=== PATIENT | female | born 1985 | race American Indian/Alaskan Native ===

== ENCOUNTER 2017-08-15 01:45 | Emergency (ER) | payer MEDICAID, OTHER ==
[2017-08-15 02:46] LABS: Basophils % (Auto) 0.4 % (0.0-1.8); Eosinophils % (Auto) 0.3 % (0.0-4.3); Hematocrit 39.7 % (30.3-42.9); Hemoglobin 13.2 gm/dl (10.1-14.3); Mean Corpuscular HGB Conc 33 % (30-34); Mean Corpuscular Volume 76 fl (79-97); Platelet Count 211 K/mm3 (140-440); Red Cell Distribution Width 14.8 % (13.2-15.2); White Blood Count 8.4 K/mm3 (4.5-11.0)
[2017-08-15 02:47] LABS: Mean Corpuscular Hemoglobin 25 pg (28-32)
[2017-08-15 03:25] LABS: Alanine Aminotransferase 16 units/L (7-56); Albumin 3.8 g/dL (3.9-5); Albumin/Globulin Ratio 1.4 %; Alkaline Phosphatase 54 units/L (35-129); Anion Gap 20 mmol/L; BUN/Creatinine Ratio 13; Blood Urea Nitrogen 4 mg/dL (7-17); Calcium 9.2 mg/dL (8.4-10.2); Carbon Dioxide 21 mmol/L (22-30); Glucose 103 mg/dL (65-100); Lipase 9 units/L (13-60); Potassium 3.9 mmol/L (3.6-5.0); Sodium 138 mmol/L (137-145); Total Protein 6.5 g/dL (6.3-8.2)
[2017-08-15 05:22] VITALS: BP 128/58
[2017-08-15 05:58] LABS: Bilirubin,Urine NEG (Negative); Blood,Urine NEG (Negative); Granular Casts,Urine 1 /LPF; Ketones,Urine NEG (Negative); Leukocyte Esterase,Urine TR (Negative); Mucus,Urine 1+ /HPF; Nitrite,Urine NEG (Negative); Protein,Urine <15 mg/dL mg/dL (Negative); Urobilinogen,Urine < 2.0 mg/dL (<2.0)
== END 2017-08-15 05:03 | disposition left against medical advice (07) ==
LOC: ED 01:45
DX: R10.9 Unspecified abdominal pain (principal)
CPT/HCPCS: 36415; 80053; 81001; 83690; 84703; 85025

== ENCOUNTER 2017-09-04 14:21 | Inpatient (IN) | payer MEDICAID ==
[2017-09-04] MEDS ORDERED: ZOFRAN IV ONE ×2 (15:13→18:35)
[2017-09-04] MEDS ORDERED: MORPHINE IV ONE ×4 (15:13→19:37)
--- NOTE | 2017-09-04 15:57 | Ultrasound Report ---
OB sonogram: History: Contraction lower abdominal pain/. Findings: Gestation: Single Position: Cephalic Amniotic Fluid: DAYANA = decreased cm Placenta: Posterior Placental Grade: 0 Heart Rate: 55 BPM It is too early for anatomic survey. BPD: 3.5 cm = 16 w 5 d HC: 14.3 cm = 17 w 4 d AC: 11.3 cm = 17 w one d FL: 2.1 cm = 16 w one d HC/AC Ratio: 1.3 Cephalic Index: 64.9 Estimated Weight: 168 grams LMP: Clinical age = 18 w one d EDC: 02/04/18 US Gest. Age = 16 w 6 d EDC: 02/13/18 The fetus appears to be in the low uterine segment adjacent to the cervix.
[2017-09-04 16:17] LABS: Basophils % (Auto) 0.3 % (0.0-1.8); Eosinophils % (Auto) 0.3 % (0.0-4.3); Hematocrit 41.5 % (30.3-42.9); Hemoglobin 13.7 gm/dl (10.1-14.3); Mean Corpuscular HGB Conc 33 % (30-34); Mean Corpuscular Volume 77 fl (79-97); Platelet Count 243 K/mm3 (140-440); Red Blood Count 5.41 M/mm3 (3.65-5.03); White Blood Count 11.6 K/mm3 (4.5-11.0)
[2017-09-04 16:18] LABS: Mean Corpuscular Hemoglobin 25 pg (28-32)
[2017-09-04] MEDS ORDERED: NACL 0.9% 1000 ML 1,000 ML IV ONE ×3 (16:21→17:51)
[2017-09-04 16:37] LABS: Anion Gap 22 mmol/L; BUN/Creatinine Ratio 13; Blood Urea Nitrogen 4 mg/dL (7-17); Calcium 9.4 mg/dL (8.4-10.2); Carbon Dioxide 17 mmol/L (22-30); Chloride 97.9 mmol/L (98-107); Glucose 85 mg/dL (65-100); Potassium 3.8 mmol/L (3.6-5.0); Sodium 133 mmol/L (137-145)
--- NOTE | 2017-09-04 17:28 | Emergency Department Report ---
ED Female HPI - General Chief complaint: OB/Uterine Contractions Stated complaint: LOWER ABD PAIN, 18 WKS Source: patient, EMS Mode of arrival: Stretcher Limitations: No Limitations - History of Present Illness Initial comments: The patient is 18 weeks by dates. 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 As far as she knew her was going well until she has acute onset of lower abdominal cramping and vaginal bleeding. She passed some clots. She presented to the emergency department further care and evaluation. Complaint: vaginal bleeding -: Sudden Location: suprapubic Severity: moderate, severe Quality: cramping Consistency: intermittent Improves with: none Worsens with: none Are you Now?: Yes (18 weeks by dates) Associated Symptoms: denies other symptoms - Related Data Home Medications Medication Instructions Recorded Confirmed Last Taken No Known Home Medications [No 09/30/13 09/30/13 Unknown Reported Home Medications] Allergies Allergy/AdvReac Type Severity Reaction Status Date / Time oxycodone [From OxyContin] Allergy Unknown Verified 09/04/17 15:04 ED Review of Systems ROS: Stated complaint: LOWER ABD PAIN, 18 WKS Other details as noted in HPI Constitutional: denies: chills, fever Eyes: denies: eye pain, eye discharge, vision change ENT: denies: ear pain, throat pain Respiratory: denies: cough, shortness of breath, wheezing Cardiovascular: denies: chest pain, palpitations Endocrine: no symptoms reported Gastrointestinal: denies: abdominal pain, nausea, diarrhea Genitourinary: as per HPI, other. denies: urgency, dysuria, discharge Musculoskeletal: denies: back pain, joint swelling, arthralgia Skin: denies: rash, lesions Neurological: denies: headache, weakness, paresthesias Psychiatric: denies: anxiety, depression Hematological/Lymphatic: denies: easy bleeding, easy bruising ED Past Medical Hx - Past Medical History Previous Medical History?: No Hx Hypertension: No Hx Seizures: No Hx Asthma: No - Surgical History Past Surgical History?: Yes Additional Surgical History: Mirena removal - Social History Smoking Status: Never Smoker Substance Use Type: None - Medications Home Medications: Home Medications Medication Instructions Recorded Confirmed Last Taken Type No Known Home Medications [No 09/30/13 09/30/13 Unknown History Reported Home Medications] ED Physical Exam - General Limitations: No Limitations General appearance: alert, in no apparent distress, anxious - Head Head exam: Present: atraumatic, normocephalic - Eye Eye exam: Present: normal appearance. Absent: scleral icterus - ENT ENT exam: Present: mucous membranes moist - Neck Neck exam: Present: normal inspection - Respiratory Respiratory exam: Present: normal lung sounds bilaterally. Absent: respiratory distress - Cardiovascular Cardiovascular Exam: Present: regular rate, normal rhythm. Absent: systolic murmur, diastolic murmur, rubs, gallop - GI/Abdominal GI/Abdominal exam: Present: soft, normal bowel sounds. Absent: distended, tenderness, guarding, rebound, rigid - External exam: Present: other (clot at the introitus no active bleeding) - Extremities Exam Extremities exam: Present: normal inspection - Back Exam Back exam: Present: normal inspection - Neurological Exam Neurological exam: Present: alert, oriented X3, CN II-XII intact. Absent: motor sensory deficit - Psychiatric Psychiatric exam: Present: normal affect, normal mood - Skin Skin exam: Present: warm, dry, intact, normal color. Absent: rash ED Course Vital Signs 09/04/17 09/04/17 09/04/17 15:04 15:44 16:08 Temperature 98.6 F Pulse Rate 97 H 91 H Respiratory 20 18 18 Rate Blood Pressure 147/89 Blood Pressure 131/90 [Left] O2 Sat by Pulse 98 98 98 Oximetry - Reevaluation(s) Reevaluation #1: Patient was given analgesia. 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 Finally, the nurse practitioner called me back. By then the patient had just passed a fetus per the nurse. The nurse practitioner for Dr. Broderick stated that we could bridge the patient up to mother baby for further care and evaluation. This will be done. I will reexamine the patient prior to sending her and begin a Pitocin drip. 09/04/17 17:30 Reevaluation #2: The patient's cord was cut and clamped. The placenta has not yet passed. Nursing is processing the fetus appropriately. Patient will be admitted. She is not actively bleeding. 09/04/17 17:39 ED Medical Decision Making - Lab Data Result diagrams: 09/04/17 16:13 09/04/17 15:13 Laboratory Results - last 24 hr 09/04/17 09/04/17 09/04/17 15:13 16:06 16:13 WBC 11.6 H RBC 5.41 H Hgb 13.7 Hct 41.5 MCV 77 L MCH 25 L MCHC 33 RDW 14.0 Plt Count 243 Lymph % (Auto) 17.0 [place] % (Auto) 6.1 Eos % (Auto) 0.3 Baso % (Auto) 0.3 Lymph # 2.0 [place] # 0.7 Eos # 0.0 Baso # 0.0 Seg Neutrophils % 76.3 H Seg Neutrophils # 8.8 H Sodium 133 L Potassium 3.8 Chloride 97.9 L Carbon Dioxide 17 L Anion Gap 22 BUN 4 L Creatinine 0.3 L Estimated GFR > 60 BUN/Creatinine Ratio 13 Glucose 85 Calcium 9.4 HCG, Quant Blood Type B POSITIVE Antibody Screen Negative 09/04/17 16:13 WBC RBC Hgb Hct MCV MCH MCHC RDW Plt Count Lymph % (Auto) [place] % (Auto) Eos % (Auto) Baso % (Auto) Lymph # [place] # Eos # Baso # Seg Neutrophils % Seg Neutrophils # Sodium Potassium Chloride Carbon Dioxide Anion Gap BUN Creatinine Estimated GFR BUN/Creatinine Ratio Glucose Calcium HCG, Quant 87152 H Blood Type Antibody Screen Critical care attestation.: If time is entered above; I have spent that time in minutes in the direct care of this critically ill patient, excluding procedure time. ED Disposition Clinical Impression: Incomplete Disposition: -09 OP ADMIT IP TO THIS HOSP Is pt being admited?: Yes Does the pt Need Aspirin: No Condition: Stable Referrals: PRIMARY CARE, [Primary Care Provider] - 3-5 Days Time of Disposition: 17:39
[2017-09-04] MEDS ORDERED: PITOCin/NS 20 UNIT/1000ML DRIP 20 UNITS/1,000 ML BAG IV SCH (18:00)
[2017-09-04] MEDS ORDERED: ZOFRAN ONE (18:23)
[2017-09-04] MEDS ORDERED: MORPHINE ONE (19:28)
[2017-09-04 20:07] LABS: Basophils % (Auto) 0.2 % (0.0-1.8); Eosinophils % (Auto) 0.1 % (0.0-4.3); Hematocrit 32.5 % (30.3-42.9); Hemoglobin 10.5 gm/dl (10.1-14.3); Mean Corpuscular HGB Conc 32 % (30-34); Mean Corpuscular Volume 77 fl (79-97); Platelet Count 214 K/mm3 (140-440); Red Cell Distribution Width 14.1 % (13.2-15.2); White Blood Count 12.8 K/mm3 (4.5-11.0)
[2017-09-04 20:08] LABS: Mean Corpuscular Hemoglobin 25 pg (28-32)
[2017-09-04 20:17] LABS: INR 1.09 (0.87-1.13)
[2017-09-04 20:18] LABS: Partial Thromboplastin Time 22.9 Sec. (24.2-36.6)
[2017-09-04] MEDS ORDERED: PHENERGAN PO PRN (20:18)
[2017-09-04] MEDS ORDERED: TYLENOL PO PRN (20:18)
[2017-09-04] MEDS ORDERED: DULCOLAX PR PRN (20:18)
[2017-09-04] MEDS ORDERED: ZOFRAN IV PRN (20:18)
[2017-09-04] MEDS ORDERED: MILK OF MAGNESIA PO PRN (20:18)
[2017-09-04] MEDS ORDERED: LANSINOH TP PRN (20:18)
[2017-09-04] MEDS ORDERED: PHENERGAN PR PRN (20:18)
[2017-09-04] MEDS ORDERED: TUCKS PAD TP PRN (20:18)
[2017-09-04] MEDS ORDERED: BENADRYL PO PRN (20:18)
--- NOTE | 2017-09-04 20:30 | History and Physical Report ---
History of Present Illness Date of examination: 09/04/17 Date of admission: 09/04/17 17:25 Chief complaint: cramping since yesterday, water broke at home and fetus delivered in the ER History of present illness: 32 yo at !8 wk followed at [facility] who went there yesterday c/o contractions and pain and was tx for UTI "again". She came to ER today with severe pain and passed an 18wk fetus several hours before I saw her. She said the pain just got worse and worse and then her water broke at home and she came in via EMS. 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 (D&C x 2 for EAB and remove Mirena) Family/Genetic History: none Social history: no significant social history - Obstetrical History : 4 Para: 1 Hx # Term Pregnancies: 1 Spontaneous Abortions: 2 Induced : 1 Number of Living Children: 1 Medications and Allergies Allergies Allergy/AdvReac Type Severity Reaction Status Date / Time oxycodone [From OxyContin] Allergy Unknown Verified 09/04/17 15:04 Home Medications Medication Instructions Recorded Confirmed Last Taken Type Amoxicillin/Potassium Clav 1 each PO BID 09/04/17 09/04/17 09/04/17 History [Augmentin 500-125 Tablet] Active Meds: Active Medications Acetaminophen (Tylenol) 650 mg PO Q4H PRN PRN Reason: Pain MILD(1-3)/Fever >100.5/CANDELARIO Bisacodyl (Dulcolax) 10 mg ND BID PRN PRN Reason: Constipation Diphenhydramine HCl (Benadryl) 25 mg PO Q6H PRN PRN Reason: Itching Diphtheria/Tetanus/Acell Pertussis (Boostrix) 0.5 ml IM .ONCE ONE Stop: 09/05/17 20:19 Oxytocin/Sodium Chloride (Pitocin/Ns 20 Unit/1000ml Drip) 20 units in 1,000 mls @ 125 mls/hr IV DIRECT NNEKA Last Admin: 09/04/17 18:00 Dose: 125 mls/hr Ibuprofen (Motrin) 600 mg PO Q6H NNEKA Magnesium Hydroxide (Milk Of Magnesia) 30 ml PO HS PRN PRN Reason: Constipation Multi-Ingredient Ointment (Lansinoh) 1 applic TP PRN PRN PRN Reason: Sore Nipples Ondansetron HCl (Zofran) 4 mg IV Q8H PRN PRN Reason: Nausea And Vomiting Promethazine HCl (Phenergan) 25 mg ND Q6H PRN PRN Reason: Nausea And Vomiting Promethazine HCl (Phenergan) 25 mg PO Q6H PRN PRN Reason: Nausea And Vomiting Sodium Chloride (Sodium Chloride Flush Syringe 10 Ml) 10 ml IV PRN NR Witch Casandra/Glycerin (Tucks Pad) 1 each TP PRN PRN PRN Reason: Hemorrhoid/cleansing/soothing Review of Systems All systems: negative - Vital Signs Vital signs: Vital Signs Temp Pulse Resp BP Pulse Ox 98.6 F 97 H 20 147/89 98 09/04/17 15:04 09/04/17 15:04 09/04/17 15:04 09/04/17 15:04 09/04/17 15:04 Temp Pulse Resp BP Pulse Ox 98.6 F 104 H 22 122/76 100 09/04/17 15:04 09/04/17 18:00 09/04/17 18:00 09/04/17 18:00 09/04/17 18:00 - Physical Exam Cardiovascular: Regular rate Lungs: Positive: Clear to auscultation Abdomen: Positive: normal appearance, soft Uterus: Positive: enlarged (placenta removed intact and clots expressed by me, teased out with ring forceps, intact fetus in the room) Results Result Diagrams: 09/04/17 19:51 09/04/17 15:13 Abnormal lab results 09/04/17 09/04/17 Range/Units 19:51 19:51 WBC 12.8 H (4.5-11.0) K/mm3 MCV 77 L (79-97) fl MCH 25 L (28-32) pg Lymph % (Auto) 8.6 L (13.4-35.0) % Lymph # 1.1 L (1.2-5.4) K/mm3 Seg Neutrophils % 86.1 H (40.0-70.0) % Seg Neutrophils # 11.0 H (1.8-7.7) K/mm3 APTT 22.9 L (24.2-36.6) Sec. All other labs normal. Assessment and Plan - Patient Problems (1) Retained placenta, delivered Current Visit: Yes Status: Acute (2) Spontaneous in second trimester Current Visit: Yes Status: Acute
[2017-09-04] MEDS ORDERED: SODIUM CHLORIDE FLUSH SYRINGE 10 ML IV NR (21:00)
[2017-09-04] MEDS: MOTRIN PO SCH (21:24)
[2017-09-04] MEDS ORDERED: NORCO 5/325 PO PRN (22:47)
[2017-09-05] MEDS: MOTRIN PO SCH ×2 (03:05→11:35)
--- NOTE | 2017-09-05 07:42 | Discharge Summary ---
Providers - Providers Date of Admission: 09/04/17 17:25 Date of discharge: 09/05/17 (Pt and partner ask to go home today) Attending physician: RASHAD GIL Primary care physician: SHIP MANAGER Hospitalization Reason for admission: IUFD (18 weeks) Episiotomy: none Laceration: none Other procedures: none complications: none Discharge diagnosis: intrapartum demise Hospital course: pt presented to ED and delivered an 18 week demise Placenta delivered some time later by w/o complications Pt declines any [place] nor CM intervention or assistance at this time. Services offered. VSS FF below umb Lochia small Perineum intact H&H pending. Stable s/p vag del of demise P: d/c today with instructions Pt declines BC at this time Pt desires to f/u in our office information provided to pt. All paper work for disposition of fetus done prior to d/c. Condition at discharge: Good Disposition: DC-01 TO HOME OR SELFCARE - Discharge Diagnoses (1) Spontaneous in second trimester Status: Acute Comment: foloow up in office in 2-4 weeks Plan - Provider Discharge Summary Activity: routine Diet: routine Instructions: routine Additional instructions: [] Smoking cessation referral if applicable(refer to patient education folder for contact #) [] Refer to [facility] Booklet Call your doctor immediately for: * Fever > 100.5 * Heavy vaginal bleeding ( >1 pad per hour) * Severe persistent headache * Shortness of breath * Reddened, hot, painful area to leg or breast * Drainage or odor from incision. * Keep incision clean and dry at all times and follow doctor's instructions regarding bathing/showering - Follow up plan Follow up: PRIMARY CARE, [Primary Care Provider] - 3-5 Days RUBENS CARDOSO CNM [Advanced Practice Nurse] - 10/02/17 (Please call [phone] to schedule your visit with [facility] in 2-4 weeks. Call with any concerns. [address] [facility]. [phone])
[2017-09-05 09:22] LABS: Hematocrit 26.7 % (30.3-42.9)
[2017-09-05 12:42] VITALS: BP 111/52
[2017-09-05 12:50] LABS: Bacteria,Urine 1+ /HPF (Negative); Bilirubin,Urine NEG (Negative); Blood,Urine LG (Negative); Ketones,Urine 80 mg/dL (Negative); Leukocyte Esterase,Urine SM (Negative); Mucus,Urine FEW /HPF; Nitrite,Urine NEG (Negative); Urobilinogen,Urine < 2.0 mg/dL (<2.0)
[2017-09-05 12:53] LABS: RBC,Urine > 182.0 /HPF (0.0-6.0)
[2017-09-05] MEDS ORDERED: BOOSTRIX IM ONE (20:18)
== END 2017-09-05 13:10 | disposition home or self-care (01) | DRG 779 ==
LOC: ED 14:21 → OB 17:25
PROVIDERS: ADMIT Obstetrics & Gynecology; ATTEND Obstetrics & Gynecology
PROC: 10E0XZZ Delivery of Products of Conception, External Approach (ICD-10-PCS; principal; 2017-09-04)
DX: O03.4 Incomplete spontaneous abortion without complication (principal); O73.0 Retained placenta without hemorrhage; Z88.5 Allergy status to narcotic agent; Z79.2 Long term (current) use of antibiotics; Z37.1 Single stillbirth; Z3A.18 18 weeks gestation of pregnancy
CPT/HCPCS: 36415; 76805; 80048; 81001; 84702; 85014; 85018; 85025; 85610; 85730; 86850; 86900; 86901; 96374; 96375; 96376; 99285; J2270; J2405; J2590; J7030

== ENCOUNTER 2018-03-07 05:34 | Observation (INO) | payer MEDICAID ==
--- NOTE | 2018-03-05 14:51 | History and Physical Report ---
History of Present Illness Date of examination: 03/05/18 Date of admission: 03/07/18 Chief complaint: here for surgery History of present illness: Pt with h/o loss at 18 weeks here for cerclage placement at 13 6/7 wks as per m recommendations. Pt advised of all risk, benefits and alternatives including but not limited to infection, loss, delivery, injury to cervix and vagina, need to remove due to infection resulting in loss, failure of cerclage. Pt expressed understanding and all questions were addressed and answered. EDC Calculations LMP: 09/06/2018 EDC Confirmation: 09/06/2018 Gestational Age: 7 2/7 weeks Past History : 5 Term Births: 1 Premature Births: 0 Living Children: 1 Para: 1 Mult. Births: 0 Prev : 0 Prev. attempt? 0 Aborta: 3 Elect. Ab: 1 Spont. Ab: 2 Ectopics: 0 # 1 Delivery date: 08/01/2008 Weeks Gestation: term labor: no Delivery type: Hours of labor: 11 Anesthesia type: epidural Delivery location: [place] Sex: Female weight: 7 Name: Mckenzie Comments: denies complications # 2 Delivery date: 2015 Weeks Gestation: 8 Delivery type: EAB Comments: denies complications # 3 Delivery date: 11/11/2016 Weeks Gestation: 4-6 Delivery type: SAB Delivery location: - Comments: - # 4 Delivery date: 09/10/2017 Weeks Gestation: 18 Delivery type: SAB Delivery location: [facility] Comments: PPROM delivered in ED del placenta Past Medical History: Reviewed history from 09/19/2017 and no changes required: Negative Past Medical History Past Surgical History: IUD removed in OR 2012 LEEP performed in OR (2012) D&C: (2015) Family History Summary: Mother (biol.) - Has No Family History of Ovarvian Cancer - Entered On: 2017 Mother (biol.) - Has No Family History of Colon Cancer - Entered On: 01/20/2018 Mother (biol.) - Has Family History Breast Cancer - Entered On: 01/20/2018 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 Risk Factors: Smoked Tobacco Use: Never smoker Drug use: yes Alcohol use: yes Drinks per day: social Past Medical History 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): IUD removed in OR 2012 LEEP performed in OR (2012) D&C: (2016) Abnormal PAP: positive ALYCE Exposure: negative Infertility: negative Uterine Anomaly: negative Uterine Surgery (not C/S): positive Social Hx: 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 Genetic History Congenital Heart Defect: Mom: no Dad: no Sukhwinder Disease: Mom: no Dad: no Thalassemia Mom: no Dad: no Neural Tube Defect Mom: no Dad: no Down's Syndrome Mom: no Dad: no Christos-Sachs Mom: no Dad: no Sickle Cell Disease/Trait Mom: no Dad: no Hemophilia Mom: no Dad: no Muscular Dystrophy Mom: no Dad: no Cystic Fibrosis Mom: no Dad: no [place] Chorea Mom: no Dad: no Mental Retardation Mom: no Dad: no Fragile X Mom: no Dad: no Other Genetic/Chromosomal Disorder Mom: no Dad: no Child w/other defect Mom: no Dad: no Enviromental Exposures Xray Exposure: no Medication, drug, or alcohol use since LMP: no Chemical/Other Exposure: no Exposure to Cat Liter: no Hx of Parvovirus (Fifth Disease): no Active Medications (reviewed today): None Current Allergies (reviewed today): * OXYCONTIN (Critical) Past History Past Medical History: no pertinent history Past Surgical History: no surgical 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 ACTION History: denies: abnormal PAP smear Social history: no significant social history - Obstetrical History Expected Date of Delivery: 09/06/18 Actual Gestation: 13 Week(s) 4 Day(s) : 5 Para: 1 Spontaneous Abortions: 2 Induced : 1 Number of Living Children: 1 Medications and Allergies Allergies Allergy/AdvReac Type Severity Reaction Status Date / Time oxycodone [From OxyContin] Allergy Unknown Verified 09/04/17 15:04 Home Medications Medication Instructions Recorded Confirmed Last Taken Type Amoxicillin/Potassium Clav 1 each PO BID 09/04/17 09/04/17 09/04/17 History [Augmentin 500-125 Tablet] Ibuprofen [Motrin 800 MG tab] 800 mg PO TID PRN #30 tablet 09/05/17 Unknown Rx - Physical Exam Cardiovascular: Normal S1, Normal S2 Lungs: Positive: Clear to auscultation, Normal air movement Abdomen: Positive: normal appearance, soft. Negative: distention, tenderness, guarding Genitourinary (Female): Positive: other (deferred until EUA) - Obstetrical FHR: auscultation normal Results All other labs normal. Assessment and Plan - Patient Problems (1) 13 weeks gestation of Status: Acute (2) Incompetent cervix Status: Acute Plan to address problem: -admit and prepare for Kern Cx -consents signed and placed on the chart -all questions were addressed and answered.
[2018-03-07] MEDS ORDERED: ANCEF/STERILE WATER 2 GM/20 ML 2 GM/20 ML SYRINGE IV NR (06:00)
--- NOTE | 2018-03-07 06:40 | Ultrasound Report ---
FINAL REPORT EXAM: US OB LIMITED HISTORY: heart rate TECHNIQUE: A limited OB sonogram was obtained for evaluation of heart tones. FINDINGS: There is a single intrauterine . The heart rate is 157 BPM. IMPRESSION: heart rate is 157 BPM.
[2018-03-07] MEDS ORDERED: LACTATED RINGERS 1,000 ML ONE (06:49)
[2018-03-07 07:19] LABS: Hematocrit 34.6 % (30.3-42.9); Hemoglobin 10.9 gm/dl (10.1-14.3); Mean Corpuscular HGB Conc 31 % (30-34); Platelet Count 248 K/mm3 (140-440); Red Blood Count 5.16 M/mm3 (3.65-5.03)
[2018-03-07 07:27] LABS: Mean Corpuscular Hemoglobin 21 pg (28-32); Mean Corpuscular Volume 67 fl (79-97)
[2018-03-07] MEDS ORDERED: REGLAN IV NR (07:30)
[2018-03-07] MEDS ORDERED: PEPCID IV NR (07:30)
[2018-03-07] MEDS ORDERED: BICITRA PO NR (07:30)
[2018-03-07] MEDS ORDERED: LACTATED RINGERS 1,500 ML IV NR (08:00)
[2018-03-07] MEDS ORDERED: ANCEF/STERILE WATER 2 GM/20 ML IV ONE (08:10)
[2018-03-07] MEDS ORDERED: WATER FOR IRRIG STERILE IR ONE (08:25)
[2018-03-07] MEDS ORDERED: ZOFRAN ONE (08:29)
[2018-03-07] MEDS ORDERED: NEO SYNEPHRINE/NS Syringe(OR USE) IV ONE (08:42)
--- NOTE | 2018-03-07 08:50 | Anesthesia Day of Surgery ---
Anesthesia Day of Surgery - Day of Surgery Patient Examined: Yes Patient H&P Reviewed: Yes Patient is NPO: Yes
--- NOTE | 2018-03-07 08:50 | Anesthesia Consultation ---
Anesthesia Consult and Med Hx - Airway Anesthetic Teeth Evaluation: Good ROM Head & Neck: Adequate Mental/Hyoid Distance: Adequate Mallampati Class: Class II Intubation Access Assessment: Probably Good - Pulmonary Exam CTA: Yes - Cardiac Exam Cardiac Exam: RRR - Pre-Operative Health Status ASA Pre-Surgery Classification: ASA2 () Proposed Anesthetic Plan: Spinal - Pulmonary Hx Smoking: No Hx Asthma: No Hx Sleep Apnea: No - Cardiovascular System Hx Hypertension: No Hx Heart Murmur: No - Central Nervous System Hx Seizures: No Hx Psychiatric Problems: No - Gastrointestinal Hx Gastroesophageal Reflux Disease: No - Endocrine Hx Renal Disease: No Hx Hypothyroidism: No Hx Hyperthyroidism: No - Hematic Hx Anemia: Yes Hx Sickle Cell Disease: No - Other Systems Hx Alcohol Use: No Hx Substance Use: Yes (MARIJUANA OCCASSIONALLY) Hx Cancer: No Hx Obesity: No
--- NOTE | 2018-03-07 09:01 | Operative Report ---
Operative Report Operative Report: Date of procedure: 03/07/2018 Pre-operative diagnosis: Cervical incompetence Post-operative diagnosis: Same Procedure name(s): Concha cerclage Surgeon: Dr. Johnson Ladle Puller: KIRK Anesthesia: spinial EBL: Minimal Urine output: 200 mL of clear urine out via straight catheterization prior to the onset of the procedure Fluids: 900 mL Findings: Normal cervix approximately 4 cm length. Minimal bleeding noted at the end of the procedure. Cervix noted to be closed at the end of the procedure. Indications: History of previous history of loss at 18 weeks gestation presents for prophylactic cerclage placement. All risks benefits and alternatives were discussed with the patient. Consents were signed and placed on the chart. Procedure: After informed consent was obtained patient was taken to the operating room where she was placed in dorsal lithotomy position with legs being placed in Joel stirrups. The patient was then prepped and draped in sterile fashion. Sterile speculum was then placed inside of the vagina. Cervix was then prepped with Betadine. Anterior lip of the cervix was grasped with the ring forceps. The Ethibond suture was then placed starting at the 12: 00 position with a purse string suture being placed to encompass the entire cervix. Care was taken to avoid the 3:00 and 6:00 positions of the cervix. The suture was then secured by tying down the suture with several knots. There was no bleeding noted at the end of the procedure. Patient tolerated procedure well. All instruments were removed from the vagina. Patient was taken to the recovery room awake and in stable condition.
--- NOTE | 2018-03-07 09:04 | Short Stay Summary ---
Short Stay Documentation Date of service: 03/07/18 - History H&P: dictated Social history: no significant social history - Allergies and Medications Current Medications: Allergies oxycodone [From OxyContin] Allergy (Verified 09/04/17 15:04) Unknown Home Medications Medication Instructions Recorded Confirmed Last Taken Type Amoxicillin/Potassium Clav 1 each PO BID 09/04/17 09/04/17 09/04/17 History [Augmentin 500-125 Tablet] Ibuprofen [Motrin 800 MG tab] 800 mg PO TID PRN #30 tablet 09/05/17 Unknown Rx Active Medications Citric Acid/Sodium Citrate (Bicitra) 30 ml PO ONCE NR Stop: 03/07/18 12:00 Famotidine (Pepcid) 20 mg IV ONCE NR Stop: 03/07/18 12:00 Cefazolin Sodium (Ancef/Sterile Water 2 Gm/20 Ml) 2 gm in 20 mls @ 80 mls/hr IV PREOP NR; Protocol Stop: 03/07/18 23:00 Lactated Ringer's (Lactated Ringers) 1,500 mls @ 2,250 mls/hr IV PREOP NR Stop: 03/07/18 15:00 Metoclopramide HCl (Reglan) 10 mg IV PREOP NR Stop: 03/07/18 12:00 - Brief post op/procedure progress note Date of procedure: 03/07/18 Pre-op diagnosis: cervical incompetence; routine weeks gestation Post-op diagnosis: same Procedure: Kern cerclage placement Anesthesia: spinal Findings: See operative report Surgeon: JUAN PROCTOR (german) Estimated blood loss: minimal Pathology: none Condition: stable - Hospital course Hospital course: Patient admitted for above-stated procedure. Procedure was uncomplicated. Patient will be discharged home once recovery completed fascia and met discharge criteria - Disposition Condition at discharge: Good Disposition: DC-01 TO HOME OR SELFCARE - Discharge Diagnoses (1) 13 weeks gestation of Status: Acute (2) Incompetent cervix Status: Acute Short Stay Discharge Plan Activity: no restrictions, other (pelvic rest nothing in the vagina no sex on top also douching) Diet: regular Additional Instructions: Keep scheduled follow-up appointment. Follow up with: JUAN PROCTOR MD [Primary Care Provider] - 7 Days
[2018-03-07 11:46] VITALS: BP 109/59
== END 2018-03-07 14:00 | disposition home or self-care (01) ==
LOC: LDOR 05:34 → APU 05:35 → INTOOBSV 05:35 → TRG 05:41 → LD 11:13
PROVIDERS: ADMIT Obstetrics & Gynecology; ATTEND Obstetrics & Gynecology
DX: O34.31 Maternal care for cervical incompetence, first trimester (principal); Z3A.13 13 weeks gestation of pregnancy
CPT/HCPCS: 36415; 59320; 76815; 85027; 86850; 86900; 86901; 96374; 96375; G0378; J0690; J2370; J2405; J2765; J7120; 96360; 96361

== ENCOUNTER 2018-06-16 02:26 | Outpatient (CLI) | payer OTHER, MEDICAID ==
[2018-06-16] MEDS ORDERED: LACTATED RINGERS 500 ML IV ONE (02:36)
[2018-06-16] MEDS ORDERED: LACTATED RINGERS 1,000 ML IV SCH (03:00)
[2018-06-16 03:15] LABS: Bilirubin,Urine NEG (Negative); Blood,Urine NEG (Negative); Color,Urine Straw (Yellow); Protein,Urine <15 mg/dL mg/dL (Negative); Urobilinogen,Urine < 2.0 mg/dL (<2.0)
[2018-06-16 04:00] VITALS: BP 158/81
== END 2018-06-16 05:45 | disposition home or self-care (01) ==
LOC: TRG 02:26
PROVIDERS: ATTEND Obstetrics & Gynecology
DX: O47.02 False labor before 37 completed weeks of gestation, second trimester (principal); Z3A.28 28 weeks gestation of pregnancy; Z88.2 Allergy status to sulfonamides
CPT/HCPCS: 36415; 59025; 81001; 82731; 96360; 96361; J7120